=== PATIENT | female | born 1985 | race Caucasian/White ===

== ENCOUNTER → 2023-03-27 12:06 | Outpatient (CLI) | payer BC, SELFPAY ==
--- NOTE | 2023-03-27 12:10 | DI.US.S_ITS ---
PROCEDURE: US ABDOMEN LIMITED INDICATIONS: SERUM IRON ABOVE REFERENCE RANGE TECHNIQUE: Real-time focused scanning was performed of the abdomen, with image documentation. COMPARISON: None. FINDINGS: The liver demonstrates normal size. The liver demonstrates generalized mildly increased echogenicity. This decreases ultrasound sensitivity for detection of hepatic masses. However, 2 hyperechoic nonvascular nonshadowing lesions can be seen within the right liver, measuring 4.1 x 5.3 x 4.4 cm and 1.3 x 1.5 x 1.4 cm, respectively. No findings of gallstones or sludge are seen. The gallbladder wall is not thickened, measuring 3 mm or less. No specific pericholecystic fluid is seen. The sonographic Thomas sign is negative. There is no biliary dilatation, the common bile duct measures 2 mm. No significant pancreatic abnormality is seen on these images. IMPRESSION: No imaging explanation is found for this patient's presenting symptoms. Two likely benign liver hemangiomas are incidentally noted. Dictated by: Jose Juan Perez M.D. on 03/27/2023 at 12:35 Approved by: Jose Juan Perez M.D. on 03/27/2023 at 12:36
== END ==
PROVIDERS: PCP Family Medicine; Referring Provider Family Medicine; Visit Provider Family Medicine
DX: R79.0 Abnormal level of blood mineral (principal)
CPT/HCPCS: 76705

== ENCOUNTER → 2024-03-25 11:27 | Outpatient (CLI) | payer BC, SELFPAY ==
--- NOTE | 2024-03-25 11:29 | DI.RAD.S_ITS ---
PROCEDURE: XR CERVICAL SPINE 4V OR 5V INDICATIONS: Cervicalgia TECHNIQUE: 5 views of the cervical spine were acquired. COMPARISON: None. FINDINGS: Seven cervical vertebrae are identified. The vertebral body heights and intervertebral disc heights are preserved. Straightening of the cervical lordosis. No dynamic instability on flexion-extension views. No significant foraminal narrowing or facet arthropathy. The C1 and C2 lateral masses are in symmetric alignment with the dens. IMPRESSION: No acute abnormality of the cervical spine. Dictated by: Sam Gonzalez M.D. on 03/25/2024 at 16:14 Approved by: Sam Gonzalez M.D. on 03/25/2024 at 16:16
== END ==
PROVIDERS: PCP Family Medicine; Referring Provider Family Medicine; Visit Provider Family Medicine
DX: M54.2 Cervicalgia (principal)
CPT/HCPCS: 72050